=== PATIENT | female | born 1940 | race Two or more races ===

== ENCOUNTER 2022-09-07 11:11 | Emergency (ER) | payer OTHER ==
[~2022-09-07] VITALS: Ht 162.6 cm; Wt 52.2 kg
[2022-09-07] MEDS ORDERED: SIMVASTATIN5 MG (11:44)
[2022-09-07] MEDS ORDERED: PLAVIX75 MG (11:45)
[2022-09-07] MEDS ORDERED: ZESTRIL40 M1 (11:45)
== END 2022-09-07 14:22 | disposition home or self-care (01) ==
LOC: ER 11:11
DX: R53.81 Other malaise (principal); Z88.0 Allergy status to penicillin; Z88.6 Allergy status to analgesic agent

== ENCOUNTER 2022-12-22 15:49 | Emergency (ER) | payer OTHER ==
[~2022-12-22] VITALS: Ht 149.9 cm; Wt 45.4 kg
[~2022-12-22 15:49] MED LIST: PLAVIX75 MG; SIMVASTATIN5 MG; ZESTRIL40 M1
[2022-12-22] MEDS ORDERED: NORVASC2.5 MG PO (16:07)
== END 2022-12-22 23:21 | disposition home or self-care (01) ==
LOC: ER 15:49
DX: I63.9 Cerebral infarction, unspecified (principal); Z88.0 Allergy status to penicillin; Z88.6 Allergy status to analgesic agent; I10 Essential (primary) hypertension; Z20.822 Contact with and (suspected) exposure to COVID-19

== ENCOUNTER 2022-12-26 10:09 | Outpatient (CLI) | payer OTHER ==
[~2022-12-26 10:09] MED LIST changes: +NORVASC2.5 MG PO
== END 2022-12-26 10:17 | disposition home or self-care (01) ==
LOC: MRI 10:09
DX: G45.8 Other transient cerebral ischemic attacks and related syndromes (principal)
CPT/HCPCS: 70551

== ENCOUNTER 2024-02-23 11:37 | Emergency (ER) | payer OTHER ==
[~2024-02-23] VITALS: Ht 149.9 cm; Wt 44.5 kg
[2024-02-23 14:33] LABS: MEAN CELL VOLUME 98.2 fL (80.00-100.00); MEAN CORPUSCULAR HEMOGLOBIN 33.5 pg (27.00-32.0); MEAN CORPUSCULAR HGB CONC 34.1 g/dl (32.0-36.0); PLATELET COUNT 263 K/uL (150-450); RED BLOOD COUNT 3.87 M/uL (4.00-6.00); RED CELL DISTRIBUTION WIDTH 13.1 % (11.5-14.5)
[2024-02-23 14:48] LABS: PARTIAL THROMBOPLASTIN TIME 26.2 SECONDS (22.0-34.0); PROTHROMBIN TIME 10.9 SECONDS (9.0-11.5)
[2024-02-23 15:08] LABS: ALBUMIN 3.8 gm/dL (3.4-5.0); BILIRUBIN TOTAL 0.65 mg/dL (0.3-1.2); CALCIUM 9.2 mg/dL (8.5-10.1); CREATININE SERUM 0.69 mg/dL (0.55-1.02); GFR 81.45; GLOBULINA 3.1 G/DL (2.4-3.5); POTASSIUM 4.28 mEq/L (3.5-5.1); TOTAL PROTEIN 6.9 gm/dL (6.4-8.2)
== END 2024-02-23 15:53 | disposition home or self-care (01) ==
LOC: ER 11:39
PROVIDERS: General Practice
DX: G81.91 Hemiplegia, unspecified affecting right dominant side (principal); R20.0 Anesthesia of skin; I10 Essential (primary) hypertension; Z88.6 Allergy status to analgesic agent; Z88.0 Allergy status to penicillin